=== PATIENT | male | born 1945 | race Caucasian/White ===

== ENCOUNTER 2021-01-08 14:59 | Emergency (ER) | payer MEDICARE, OTHER, SELFPAY ==
[2021-01-08 14:59] VITALS: BP 128/78; PULSE 72; RESP 16; TEMP 36.7; O2SAT 91; BMI 32.5
--- NOTE | 2021-01-08 15:02 | ED_ITS ---
HPI - Fall General Chief Complaint: Fall Stated Complaint: Fell from ladder Time Seen by Provider: 01/08/21 15:01 Source: patient and EMS Mode of arrival: EMS Limitations: no limitations History of Present Illness HPI Narrative: This is a 75-year-old male who comes to emergency department with complaint of fall from a ladder. Patient was working with another individual when he states ladder sort of collapsed. He states his feet were about 5 ft off the ground and he fell flat onto his back. He complains of pain in his lower lumbar region he denies pain anywhere else. He denies hitting his head. He denies loss of consciousness. He denies any neck or upper back pain. He denies any chest pain or shortness of breath. No nausea or vomiting. No vision changes. No dizziness. He denies any abdominal pain. He denies any pain in his extremities other than a small laceration over his right thumb. Patient is unsure if his tetanus is up-to-date. He has full range of motion without any numbness, tingling or weakness. And no loss of bowel or bladder control. Patient is not anticoagulated. He takes levothyroxine is his only medication. He denies any major medical issues otherwise. He is currently staying locally for the summer but lives in [facility]. Related Data Previous Rx's Medication Instructions Recorded oxycodone 5 mg tablet 5 mg PO QID PRN #14 tab 01/08/21 Allergies Allergy/AdvReac Type Severity Reaction Status Date / Time No Known Drug Allergies Allergy Verified 01/08/21 15:35 Review of Systems Review of Systems ROS Unobtainable: All systems reviewed & are unremarkable except as noted in HPI and below Patient History Social History Smoking Status: Former smoker Exam Narrative Exam Narrative: GEN: Patient appears in mild distress. HEAD: No evidence of trauma, no raccoon/Joaquin sign. NECK: Nontender, painless range of motion, trachea midline Negative Nexus criteria, mid line tenderness, distracting injury, altered mental status, neuro deficit, recent EtOH. EYES: PERRLA, EOMI ENT: External inspection normal, trachea is midline, TM's are normal no hemotypanum, Nares are clear, no septal hematoma, no dental or oral injury, airway is normal and with normal occlusion, No bony tenderness RESP: Chest is nontender and has symmetric movement, no ecchymosis, breath sounds are normal no crackles, wheezes or rales CVS: Heart sounds are normal, no murmur noted, No JVD. ABG/GI: Nontender, soft, normal bowel sounds, no distention, no organomegaly, pelvic rock is negative NEURO: Oriented AOx3, neuro is grossly intact, sensation and motor is normal all 4 extremities moving, cranial nerves II through XII are intact, GCS is 15 PSYCH: Normal mood and affect SKIN: Intact, warm and dry, no crepitus and without decubitus BACK: No CVA tenderness, patient does have quite a bit of pain with sitting up. I am unable to elicit pain with palpation. No vertebral tenderness, no step- off's, no crepitus, no ecchymosis. EXT: Atraumatic, hips are nontender, no pedal edema, normal color and temperature, normal range of motion of extremities with normal tendon exam, 2+ pulses in all four extremities. Patient does have a small avulsion laceration of the right thumb. Initial Vital Signs Initial Vital Signs: Vital Signs Temperature 98.0 F 01/08/21 14:59 Pulse Rate 72 01/08/21 14:59 Respiratory Rate 16 01/08/21 14:59 Blood Pressure 128/78 01/08/21 14:59 Pulse Oximetry 91 01/08/21 14:59 Scores GCS Nick coma scale eye opening: Spontaneous [place] coma scale verbal response: Orientated Nick coma scale motor response: Obey commands Coventry coma scale total score: 15 Nexus Score for C-Spine Focal Neurologic deficit present: No Midline spinal tenderness present: No Altered level of conciousness present: No Intoxication present: No Distracting Injury Present: No Nexus Criteria for C-spine: 0 Course Orders Ordered: Discontinued Medications Acetaminophen (Acetaminophen 325 Mg Tablet) 975 mg PO NOW ONE Stop: 01/08/21 15:17 Last Admin: 01/08/21 15:36 Dose: 975 mg Documented by: HEATH Diphtheria/Tetanus/Acell Pertussis (Tet,Diph,Pertuss(Acell),Vac/Pf 0.5 Ml Syringe) 0.5 ml IM .ONCE ONE Stop: 01/08/21 15:17 Last Admin: 01/08/21 15:36 Dose: 0.5 ml Documented by: HEATH Vital Signs Vital signs: Vital Signs - 8 hr 01/08/21 14:59 01/08/21 15:41 01/08/21 15:42 Temperature 98.0 F Pulse Rate 72 70 71 Respiratory Rate 16 Blood Pressure 128/78 134/73 Pulse Oximetry 91 90 L 92 MDM - Fall Imaging Data LSpine CT: Radiologist's Impression: [address] [id number] Scan ReportSigned Patient: Randy Venegas HMR#: [id number]: 5Acct:[id number]/Sex: 75 / MDate of Service: 01/08/21Loc: EDAccession Number: [id number] Procedure: CT lumbar spine wo con Ordering Provider: Mindy Mclaughlin D.O. PROCEDURE: CT LUMBAR SPINE WO CON INDICATIONS: fall onto back 5 feet. TECHNIQUE: Noncontrast 3 mm thick sections acquired from the T12 level to the sacrum. Sagittal and coronal reformats were constructed. For radiation dose reduction, the following was used: automated exposure control. COMPARISON: [facility], CR, XR CHEST 1V, 01/08/2021, 15:24. FINDINGS: Image quality: Excellent. Bones: There is normal bony alignment. There are irregular lucencies in the T12 vertebral body in the anterior column and superior endplate consistent with compression fracture with no significant height loss. No suspicious lytic or blastic bony lesions. No pars defects. T12-L1: No significant disc bulge. The foramina and central canal are patent. L1-L2: No significant disc bulge. The foramina and central canal are patent. L2-L3: No significant disc bulge. The foramina and central canal are patent. L3-L4: No significant disc bulge. The foramina and central canal are patent. L4-L5: There is disc space narrowing and endplate degenerative changes with a diffuse disc bulge and osteophytes with vacuum disc changes. Cause mild bilateral foraminal stenosis. The central canal is patent. L5-S1: Degenerative disc disease with a diffuse disc bulge and osteophytes cause mild bilateral foraminal stenosis. There is a Schmorl's node at the inferior endplate of L4 and the superior endplate of L5. The central canal is patent. Soft tissues: No retroperitoneal masses or hematomas. Visualized aorta is normal in caliber. IMPRESSION: 1. Compression fracture of T12 with no significant height loss. This fracture would be amendable to vertebroplasty if desired. 2. Degenerative disc disease at L4-5 and L5-S1. Dictated by: Andrea Barber M.D. on 01/08/2021 at 15:57 Approved by: Andrea Barber M.D. on 01/08/2021 at 16:15 Chest x-ray: Radiologist's Impression: [address] [id number] ReportSigned Patient: Randy Venegas R#: [id number]: 5Acct:[id number]/Sex: 75 / MDate of Service: 01/08/21Loc: EDAccession Number: [id number] Procedure: XR chest 1V Ordering Provider: Mindy Mclaughlin D.O. PROCEDURE: XR CHEST 1V INDICATIONS: fall TECHNIQUE: One view of the chest was acquired. COMPARISON: None. FINDINGS: Surgical changes and devices: None. Lungs and pleura: Lungs are clear. No pleural effusions or pneumothorax. Mediastinum: Mediastinal contours appear normal. Heart size is normal. Bones and chest wall: No suspicious bony lesions. Overlying soft tissues appear unremarkable. IMPRESSION: No acute cardiopulmonary abnormality. Dictated by: Andrea Barber M.D. on 01/08/2021 at 15:56 Approved by: Andrea Barber M.D. on 01/08/2021 at 15:57 [facility] Narrative Medical decision making narrative: This is a 75-year-old male who had a 5 ft fall from a ladder landing flat on his back per patient. Patient denies loss of consciousness or striking his head and he is not anticoagulated so decision was made to not CT head or C-spine as he is nontender and appropriate mentation. Patient has tenderness in his lower back although I am not able to elicit point tenderness on palpation. Chest x-ray was obtained this patient does have discomfort with inhalation as well. Patient's x-ray of his chest is negative he has a T12 compression fracture. Patient deferred anything stronger than Tylenol here in the department initially. Patient was able to ambulate with walker. He was given prescription for narcotic pain medication as needed for pain and discussed that kyphoplasty may be a possibility for him in terms of treatment and was given referral locally although they do live outside the area. Patient's tetanus was updated he did have a laceration over some with an avulsion. Does not appear to require stitches at this time but Steri-Strips were placed by nursing after the wound was cleansed. Wound care directions were given. All questions answered. Return precautions discussed. Discharge Plan Departure Patient Disposition: Home Clinical Impression: Fall from ladder, Acute lumbar back pain, T12 compression fracture Laceration of thumb Qualifiers: Encounter type: initial encounter Damage to nail status: without damage Foreign body presence: without foreign body Laterality: right Qualified Code(s): S61.011A - Laceration without foreign body of right thumb without damage to nail, initial encounter Instructions: DI for Vertebral Fracture Activity Restrictions/Additional Instructions: Your imaging today shows a compression fracture of T12. With that up You may find it helpful to follow-up with orthopedic surgery for possible surgical repair such as kyphoplasty. Referral has been included below. Call for an appointment. You may take up to a 1000 mg every 8 hours for pain. If this is an adequate for pain control you may take narcotic pain as prescribed. Take pain medication as prescribed. This medication can make you sleepy do not drive, perform hazardous activities or make any major decisions while taking it. This medication will make you constipated please take a stool softener once to twice daily until stools are soft and regula such as colace. Make sure you are drinking plenty of fluids. Prescription sent to [facility] in [place]. Wound Care: Keep wound(s) clean and dry. Wash daily with soap and water only. Do not use over the counter products (alcohol or peroxide)on the wounds unless instructed by a physician. If wound condition worsens (increased/expanding redness, developing fluid blisters, or worsening pain), either contact your doctor for an urgent re- assessment , or return to the Emergency Department. Return to the Emergency Department for any new or worsening symptoms. Return to the ED, urgent care, or vist a primary care doctor for removal or suture or shelton Please return for severe headaches, altered mental status, new chest pain, shortness of breath, rapidly worsening back pain, new numbness, tingling or weakness, loss of bowel or bladder control, difficulty with ambulation, signs of infection at the wound of your thumb or other new or concerning symptoms. Prescriptions: New oxycodone 5 mg tablet 5 mg PO QID PRN (Reason: pain) Qty: 14 RF: 0 Referrals: Lorne Bradshaw MD [Physician] -
--- NOTE | 2021-01-08 15:16 | DI.RAD.S_ITS ---
PROCEDURE: XR CHEST 1V INDICATIONS: fall TECHNIQUE: One view of the chest was acquired. COMPARISON: None. FINDINGS: Surgical changes and devices: None. Lungs and pleura: Lungs are clear. No pleural effusions or pneumothorax. Mediastinum: Mediastinal contours appear normal. Heart size is normal. Bones and chest wall: No suspicious bony lesions. Overlying soft tissues appear unremarkable. IMPRESSION: No acute cardiopulmonary abnormality. Dictated by: Andrea Barber M.D. on 01/08/2021 at 15:56 Approved by: Andrea Barber M.D. on 01/08/2021 at 15:57
--- NOTE | 2021-01-08 15:16 | DI.CT.S_ITS ---
PROCEDURE: CT LUMBAR SPINE WO CON INDICATIONS: fall onto back 5 feet. TECHNIQUE: Noncontrast 3 mm thick sections acquired from the T12 level to the sacrum. Sagittal and coronal reformats were constructed. For radiation dose reduction, the following was used: automated exposure control. COMPARISON: [facility], CR, XR CHEST 1V, 01/08/2021, 15:24. FINDINGS: Image quality: Excellent. Bones: There is normal bony alignment. There are irregular lucencies in the T12 vertebral body in the anterior column and superior endplate consistent with compression fracture with no significant height loss. No suspicious lytic or blastic bony lesions. No pars defects. T12-L1: No significant disc bulge. The foramina and central canal are patent. L1-L2: No significant disc bulge. The foramina and central canal are patent. L2-L3: No significant disc bulge. The foramina and central canal are patent. L3-L4: No significant disc bulge. The foramina and central canal are patent. L4-L5: There is disc space narrowing and endplate degenerative changes with a diffuse disc bulge and osteophytes with vacuum disc changes. Cause mild bilateral foraminal stenosis. The central canal is patent. L5-S1: Degenerative disc disease with a diffuse disc bulge and osteophytes cause mild bilateral foraminal stenosis. There is a Schmorl's node at the inferior endplate of L4 and the superior endplate of L5. The central canal is patent. Soft tissues: No retroperitoneal masses or hematomas. Visualized aorta is normal in caliber. IMPRESSION: 1. Compression fracture of T12 with no significant height loss. This fracture would be amendable to vertebroplasty if desired. 2. Degenerative disc disease at L4-5 and L5-S1. Dictated by: Andrea Barber M.D. on 01/08/2021 at 15:57 Approved by: Andrea Barber M.D. on 01/08/2021 at 16:15
[2021-01-08] MEDS: TET,DIPH,PERTUSS(ACELL),VAC/PF 0.5 ML SYRINGE IM (15:36)
[2021-01-08] MEDS: ACETAMINOPHEN 325 MG TABLET 975 MG PO (15:36)
[2021-01-08 15:41] VITALS: PULSE 70; O2SAT 90
[2021-01-08 15:42] VITALS: BP 134/73; PULSE 71; O2SAT 92
[2021-01-08 18:42] VITALS: BP 112/59; PULSE 72; RESP 16; O2SAT 98
== END 2021-01-08 18:42 | disposition home or self-care (01) ==
PROVIDERS: Emergency Provider Emergency Medicine
DX: S22.089A Unspecified fracture of T11-T12 vertebra, initial encounter for closed fracture (principal); M54.5 Low back pain; S61.011A Laceration without foreign body of right thumb without damage to nail, initial encounter; W11.XXXA Fall on and from ladder, initial encounter; Z23 Encounter for immunization
CPT/HCPCS: 71045; 72131; 90471; 99283; 99284; 90715

== ENCOUNTER → 2021-12-13 11:21 | Outpatient (CLI) | payer MEDICARE, OTHER, SELFPAY ==
--- NOTE | 2021-12-13 11:34 | DI.RAD.S_ITS ---
PROCEDURE: XR CHEST 2V INDICATIONS: Cough TECHNIQUE: 2 views of the chest were acquired. COMPARISON: [facility], CR, XR CHEST 1V, 01/08/2021, 15:24. FINDINGS: Surgical changes and devices: None. Lungs and pleura: No significant change, chronic left basilar interstitial density, likely representing scarring. No pleural effusions or pneumothorax. Mediastinum: Mediastinal contours are normal. Heart size is normal. Bones and chest wall: No suspicious bony abnormalities. Soft tissues appear unremarkable. IMPRESSION: No evidence acute pulmonary process. Dictated by: Felix Rogers [facility] Interpreted: Michael Cho MD on 12/13/2021 at 11:47 Transcribed by: WILIAM on 12/13/2021 at 11:48 Approved by: Michael Cho M.D. on 12/13/2021 at 11:51
[2021-12-13 12:12] LABS: COVID19 -Nasal RAPID Negative (Negative)
== END ==
PROVIDERS: Referring Provider Nurse Practitioner Family; Visit Provider Nurse Practitioner Family
DX: Z20.822 Contact with and (suspected) exposure to COVID-19 (principal); R05.9 Cough, unspecified
CPT/HCPCS: 71046; 87635